=== PATIENT | female | born 1950 | race Caucasian/White ===

== ENCOUNTER → 2017-03-25 | Outpatient (CLI) | payer MEDICARE ==
--- NOTE | 2017-03-27 13:28 | MM ---
Reason for exam: screening (asymptomatic). Last mammogram was performed 1 year and 1 month ago. History: Patient is postmenopausal. Family history of breast cancer in sister at age 66. Benign right mammotome panel of the right breast, January 18, 2013. Benign excisional biopsy of the left breast, August 20, 2002. Physical Findings: A clinical breast exam by your physician is recommended on an annual basis and results should be correlated with mammographic findings. MG 3D Screening Mammo W/Cad Bilateral CC and MLO view(s) were taken. Prior study comparison: February 14, 2016, bilateral MG 3d screening mammo w/cad. January 10, 2014, CAD bilateral diagnostic mammogram. The breast tissue is heterogeneously dense. This may lower the sensitivity of mammography. Finding: There are linear arranged, heterogeneous calcifications in the right breast. Previous mammotome biopsy in the right breast. No significant changes in finding since February 14, 2016. ASSESSMENT: Probably benign, BI-RAD 3 RECOMMENDATION: Follow-up diagnostic mammogram of the right breast in 6 months.
== END | disposition home or self-care (01) ==
LOC: RADMAMWWP 15:04
PROVIDERS: ATTEND Internal Medicine
DX: Z12.31 Encounter for screening mammogram for malignant neoplasm of breast (principal)
CPT/HCPCS: 77063; G0202

== ENCOUNTER → 2017-09-08 | Outpatient (CLI) | payer MEDICARE ==
--- NOTE | 2017-09-08 09:02 | MM ---
Reason for exam: follow-up at short interval from prior study. Last mammogram was performed 5 months ago. History: Patient is postmenopausal. Family history of breast cancer in sister at age 66. Benign right mammotome panel of the right breast, January 18, 2013. Benign excisional biopsy of the left breast, August 20, 2002. Physical Findings: Nurse did not find any significant physical abnormalities on exam. MG 3D Diag Mammo W/Cad RT CC, MLO, and XCCL view(s) were taken of the right breast. Prior study comparison: March 25, 2017, bilateral MG 3d screening mammo w/cad. February 14, 2016, bilateral MG 3d screening mammo w/cad. The breast tissue is heterogeneously dense. This may lower the sensitivity of mammography. Previous mammotome biopsy in the right breast. Redemonstrated group of round and punctate calcifications in the upper outer quadrant of right breast. No change for 6 months, but new from 2016. Continued follow up is recommended. These results were verbally communicated with the patient and result sheet given to the patient on 09/08/17. ASSESSMENT: Probably benign, BI-RAD 3 RECOMMENDATION: Follow-up diagnostic mammogram of both breasts in 6 months.
== END | disposition home or self-care (01) ==
LOC: RADMAMWWP 08:08
PROVIDERS: ATTEND Internal Medicine
DX: R92.8 Other abnormal and inconclusive findings on diagnostic imaging of breast (principal)
CPT/HCPCS: G0206; G0279

== ENCOUNTER → 2018-03-09 | Outpatient (CLI) | payer MEDICARE ==
--- NOTE | 2018-03-09 14:05 | MM ---
Reason for exam: additional evaluation requested from prior study. Last mammogram was performed 6 months ago. History: Patient is postmenopausal. Family history of breast cancer in sister at age 66. Benign right mammotome panel of the right breast, January 18, 2013. Benign excisional biopsy of the left breast, August 20, 2002. Physical Findings: Nurse did not find any significant physical abnormalities on exam. MG 3D Diag Mammo W/Cad [facility] Bilateral CC and MLO view(s) were taken. Prior study comparison: September 08, 2017, right breast MG 3d diag mammo w/cad RT. March 25, 2017, bilateral MG 3d screening mammo w/cad. The breast tissue is heterogeneously dense. This may lower the sensitivity of mammography. Stable benign calcifications bilaterally. Previous mammotome biopsy in the right breast. No significant new findings when compared with previous films. These results were verbally communicated with the patient and result sheet given to the patient on 03/09/18. ASSESSMENT: Benign, BI-RAD 2 RECOMMENDATION: Routine screening mammogram of both breasts in 1 year.
== END | disposition home or self-care (01) ==
LOC: RADMAMWWP 13:19
PROVIDERS: ATTEND Internal Medicine
DX: R92.8 Other abnormal and inconclusive findings on diagnostic imaging of breast (principal)
CPT/HCPCS: 77066; G0279

== ENCOUNTER 2019-01-04 08:00 | Inpatient (IN) | payer MEDICARE ==
[2019-01-04] MEDS ORDERED: IPRATROPIUM-ALBUTEROL 3 ML NEB INHALATION STA (08:19)
[2019-01-04] MEDS ORDERED: LIDOCAINE 1%-EPI 1:100,000 20 ML VIAL SQ STA (08:52)
[2019-01-04] MEDS ORDERED: MORPHINE SULFATE 4 MG/ML SYRINGE IVP STA ×2 (08:58→11:35)
--- NOTE | 2019-01-04 08:58 | XR ---
EXAMINATION TYPE: XR ribs RT w pa chest xray DATE OF EXAM: 01/04/2019 CLINICAL HISTORY: Chest and right-sided rib and shoulder pain after fall injury 2 days ago. TECHNIQUE: Single frontal view of the chest is obtained. A frontal and oblique images of right-sided ribs are acquired. COMPARISON: None FINDINGS: There is fairly moderate size right pneumothorax suspected estimated around 30 to 40% alth ough superior portion or edge is less well-seen. There is right hilar rounded opacity suggesting at l east segmental but possibly lobar atelectasis. No distinct mediastinal shift is present. Left lung is clear. Cardiac silhouette size is mildly enlarged with atherosclerotic thoracic aorta. Osseous struc tures are demineralized. Dedicated images of right-sided ribs show mildly displaced fractures through lateral right fourth thr ough seventh ribs. Degenerative change in the right shoulder is incidentally seen. Cholecystectomy cl ips are incidentally noted. IMPRESSION: Suspect moderate right-sided pneumothorax without mediastinal shift. Suspect central mason r focal atelectasis. At least 4 mildly displaced fractures lateral right fourth through seventh ribs. CT can be performed to further assess. Because is slightly more rounded contour along the central ma rgin of the masslike consolidation favoring atelectasis advise follow-up to rule out underlying pulmo nary mass or neoplasm.
--- NOTE | 2019-01-04 09:08 | ED ---
Fall HPI - General Source: patient, EMS Mode of arrival: EMS Limitations: no limitations <Portillo Judge - Last Filed: 01/04/19 11:54> <Michael Cook - Last Filed: 01/04/19 12:02> - General Chief Complaint: Fall Stated Complaint: rt sided flank/shoulder pain Time Seen by Provider: 01/04/19 08:09 - History of Present Illness Initial Comments: 68-year-old female presents emergency department via EMS chief complaint right- sided pain, fall. Patient states on Friday she was getting out of worse states that she got up with too much momentum states that she fell over the horse landing on her right side. Patient denies head injury no loss conscious. She states she had side pain which is able poor worse awake and tolerated. She states over the last few days that the pain is worsened this morning when she felt more short of breath and had increased pain unalleviated with Tylenol Motrin. Patient denies hip pain, extremity pain. She has full range of motion of her upper extremities. Patient able to ambulate with no difficulty. Patient does admit that she has underlying asthma and occasionally has wheezing. (Portillo Judge) - Related Data Home Medications Medication Instructions Recorded Confirmed Chlorzoxazone [Parafon Forte DSC] 500 mg PO DAILY PRN 01/04/19 01/04/19 Esomeprazole Magnesium [NexIUM] 20 mg PO DAILY 01/04/19 01/04/19 Levocetirizine Dihydrochloride 5 mg PO DAILY 01/04/19 01/04/19 [Xyzal] Levothyroxine Sodium [Synthroid] 100 mcg PO DAILY 01/04/19 01/04/19 Phenytoin Sodium Extended 100 mg PO HS 01/04/19 01/04/19 [Dilantin] Phenytoin Sodium Extended 200 mg PO QAM 01/04/19 01/04/19 [Dilantin] Allergies Allergy/AdvReac Type Severity Reaction Status Date / Time codeine Allergy Unknown Verified 01/04/19 08:24 phenobarbital Allergy Unknown Verified 01/04/19 08:24 Review of Systems ROS Other: All systems not noted in ROS Statement are negative. <Portillo Judge - Last Filed: 01/04/19 11:54> ROS Other: All systems not noted in ROS Statement are negative. <Héctor Cooksssoheila Hannon - Last Filed: 01/04/19 12:02> ROS Statement: Those systems with pertinent positive or pertinent negative responses have been documented in the HPI. Past Medical History Past Medical History: Hypertension, Seizure Disorder, Thyroid Disorder History of Any Multi-Drug Resistant Organisms: None Reported Past Psychological History: No Psychological Hx Reported Smoking Status: Never smoker Past Alcohol Use History: None Reported Past Drug Use History: None Reported <Portillo Judge - Last Filed: 01/04/19 11:54> General Exam Limitations: no limitations General appearance: alert, in no apparent distress Head exam: Present: atraumatic, normocephalic, normal inspection Eye exam: Present: normal appearance, PERRL, EOMI. Absent: scleral icterus, conjunctival injection, periorbital swelling ENT exam: Present: normal exam, normal oropharynx, mucous membranes moist Neck exam: Present: normal inspection. Absent: tenderness, meningismus, lymphadenopathy Respiratory exam: Present: wheezes, decreased breath sounds, other (Patient is hypoxic at 87 on room air). Absent: normal lung sounds bilaterally, respiratory distress, rales, rhonchi, stridor Cardiovascular Exam: Present: regular rate, normal rhythm, normal heart sounds. Absent: systolic murmur, diastolic murmur, rubs, gallop, clicks GI/Abdominal exam: Present: soft, normal bowel sounds. Absent: distended, tenderness, guarding, rebound, rigid Back exam: Present: full ROM. Absent: tenderness, paraspinal tenderness, vertebral tenderness Neurological exam: Present: alert, oriented X3, CN II-XII intact Skin exam: Present: warm, dry, intact, normal color. Absent: rash <Portillo Judge - Last Filed: 01/04/19 11:54> Vital Signs 01/04/19 01/04/19 01/04/19 08:03 08:30 09:30 Temperature 98.0 F Pulse Rate 75 71 Respiratory 20 22 Rate Blood Pressure 176/105 176/105 165/107 O2 Sat by Pulse 87 L 100 Oximetry 01/04/19 01/04/19 01/04/19 09:43 10:00 10:30 Temperature Pulse Rate 66 68 Respiratory 18 18 Rate Blood Pressure 136/82 140/82 O2 Sat by Pulse 100 100 99 Oximetry Procedures - Chest Tube Insertion Consent Obtained: written consent Side of Procedure: right Indication: Pneumothorax Placed on monitor/pulse oximetry: Yes Site Prep: Chloroprep Local Anesthesia: Lidocaine 1%, With Epi Amount (mLs): 10 Insertion Site: Other Scalpel: #11 Tube Size (German): Other Returns: Air Sutured in Place: Yes Type of Suture: Nylon Dressing Applied: Tape Attached to Suction: Yes Type of Suction: Pleuravac Patient Tolerated Procedure: well <Michael Cook - Last Filed: 01/04/19 12:02> Medical Decision Making - Lab Data Result diagrams: 01/04/19 09:35 01/04/19 09:35 <Portillo Judge - Last Filed: 01/04/19 11:54> - Lab Data Result diagrams: 01/04/19 09:35 01/04/19 09:35 <Michael Cook - Last Filed: 01/04/19 12:02> - Medical Decision Making 68-year-old female presented for a fall. Patient's found to have a pneumothorax and multiple rib fractures. Thora was placed by attending Dr. Cook. Patient has stabilized. Patient had CT of her chest abdomen pelvis is found to have multiple rib fractures, ulnar a contusion and mild residual pneumothorax. Patient will be admitted to trauma service at this time with consults. (Portillo Judge) PA attestation: I, Dr. Michael Cook, personally saw and examined the patient. I have reviewed and agree with the resident/PA findings, including all diagnostic interpretations and treatment plans as written unless otherwise stated. I was present for the lopez portions of any procedures performed and inclusive time noted for any critical care statement. Patient was seen and evaluated along with the assistance of physician registered dental assistant rda Mr. Portillo Judge. Briefly, patient is 68-year-old female. She fell off her horse yesterday causing her to land on her right side. Patient experienced pain initially however decided to wait C for pain go away.Upon waking this morning patient was extrinsic disc significant tenderness and difficulty in breathing. EMS was called. Rapid chest x-ray was obtained showing moderate size right pneumothorax. Patient was showing signs of respiratory distress including intercostal retractions, tachypnea. She had diminished lung sounds on the right. Thora-Vent was placed.CT chest abdomen pelvis with contrast was obtained showing small residual right-sided pneumothorax. There is multifocal bilateral patchy opacities which may represent pulmonary contusions. There is multiple nondisplaced right-sided rib fractures. Is also mild indeterminate compression deformity of L1. Patient not having significant back pain. There is also multiple incidental findings. Discussed patient case with general surgeon so went except admission. (Michael Cook) - Lab Data Lab Results 01/04/19 01/04/19 01/04/19 Range/Units 09:35 09:35 09:35 WBC 9.8 (3.8-10.6) k/uL RBC 4.71 (3.80-5.40) m/uL Hgb 13.8 (11.4-16.0) gm/dL Hct 41.8 (34.0-46.0) % MCV 88.7 (80.0-100.0) fL MCH 29.3 (25.0-35.0) pg MCHC 33.0 (31.0-37.0) g/dL RDW 13.0 (11.5-15.5) % Plt Count 190 (150-450) k/uL Neutrophils % 71 % Lymphocytes % 19 % Monocytes % 6 % Eosinophils % 2 % Basophils % 1 % Neutrophils # 7.0 (1.3-7.7) k/uL Lymphocytes # 1.8 (1.0-4.8) k/uL Monocytes # 0.6 (0-1.0) k/uL Eosinophils # 0.2 (0-0.7) k/uL Basophils # 0.1 (0-0.2) k/uL PT 9.6 (9.0-12.0) sec INR 0.9 (<1.2) APTT 24.0 (22.0-30.0) sec Sodium 141 (137-145) mmol/L Potassium 4.3 (3.5-5.1) mmol/L Chloride 109 H (98-107) mmol/L Carbon Dioxide 25 (22-30) mmol/L Anion Gap 7 mmol/L BUN 13 (7-17) mg/dL Creatinine 0.73 (0.52-1.04) mg/dL Est GFR (CKD-EPI)AfAm >90 (>60 ml/min/1.73 sqM) Est GFR (CKD-EPI)NonAf 84 (>60 ml/min/1.73 sqM) Glucose 115 H (74-99) mg/dL Calcium 9.8 (8.4-10.2) mg/dL Total Bilirubin 0.9 (0.2-1.3) mg/dL AST 38 H (14-36) U/L ALT 29 (9-52) U/L Alkaline Phosphatase 204 H (38-126) U/L Total Protein 7.3 (6.3-8.2) g/dL Albumin 4.2 (3.5-5.0) g/dL Disposition <Portillo Judge - Last Filed: 01/04/19 11:54> <Michael Cook - Last Filed: 01/04/19 12:02> Clinical Impression: Fall, Multiple rib fractures, Pneumothorax, Pulmonary contusion Disposition: ADMITTED IP TO THIS HOSP Condition: Fair Referrals: Frank Meek MD [Primary Care Provider] - 1-2 days
--- NOTE | 2019-01-04 09:30 | XR ---
EXAMINATION TYPE: XR chest 1V portable DATE OF EXAM: 01/04/2019 COMPARISON: Chest x-ray earlier today. HISTORY: Trauma injury with rib fractures and pneumothorax status post thoravent placement. TECHNIQUE: Single AP portable frontal upright view of the chest is obtained. FINDINGS: There is interval placement of Thoravent pleural drainage catheter with improvement in rig ht-sided pneumothorax. There is persistent right hilar consolidation less masslike with suprahilar ex tension. New mediastinal shift to the right is present. The cardiac silhouette size is enlarged with atherosclerotic and ectatic thoracic aorta. Left lung remains clear. Underlying chronic emphysemato us changes felt present. The osseous structures are demineralized. Right lateral mid rib fractures le ss well seen on frontal projection. IMPRESSION: Interval placement of right-sided chest tube with resolution of moderate size pneumothor ax. Persistent right hilar consolidation favoring atelectasis with new right-sided volume loss. Progr ess study advised as if atelectasis persists obstructing endobronchial lesion needs to BE considered.
[2019-01-04 10:17] LABS: Basophils # (A) 0.1 k/uL (0-0.2); Basophils % (A) 1 %; Eosinophils # (A) 0.2 k/uL (0-0.7); Eosinophils % (A) 2 %; HCT 41.8 % (34.0-46.0); HGB 13.8 gm/dL (11.4-16.0); Lymphocytes # (A) 1.8 k/uL (1.0-4.8); Lymphocytes % (A) 19 %; MCH 29.3 pg (25.0-35.0); MCV 88.7 fL (80.0-100.0); Mean Platelet Volume 7.9; Monocytes # (A) 0.6 k/uL (0-1.0); Monocytes % (A) 6 %; Neutrophils % (A) 71 %; Platelet Count 190 k/uL (150-450); RBC 4.71 m/uL (3.80-5.40); WBC 9.8 k/uL (3.8-10.6)
[2019-01-04 10:25] LABS: ALT 29 U/L (9-52); AST 38 U/L (14-36); Albumin 4.2 g/dL (3.5-5.0); Alkaline Phosphatase 204 U/L (38-126); Anion Gap 7 mmol/L; Blood Urea Nitrogen 13 mg/dL (7-17); Calcium 9.8 mg/dL (8.4-10.2); Carbon Dioxide 25 mmol/L (22-30); Chloride 109 mmol/L (98-107); Glucose 115 mg/dL (74-99); Potassium 4.3 mmol/L (3.5-5.1); Sodium 141 mmol/L (137-145); Total Bilirubin 0.9 mg/dL (0.2-1.3); Total Protein 7.3 g/dL (6.3-8.2)
[2019-01-04 10:27] LABS: INR 0.9 (<1.2); Prothrombin Time 9.6 sec (9.0-12.0)
--- NOTE | 2019-01-04 11:28 | CT ---
EXAMINATION TYPE: CT ChestAbdPelvis w con DATE OF EXAM: 01/04/2019 COMPARISON: NONE HISTORY: Patient refused to bring arms above head. Patient fell off of horse [address] DLP: 1076.8 mGycm. Automated Exposure Control for Dose Reduction was Utilized. CONTRAST: CT scan of the thorax, abdomen and pelvis is performed with IV Contrast, patient injected with 100 mL of Isovue 300. FINDINGS: Exam is limited by patient motion. Exam is also limited as the patient refused to left her arms above her head creating artifact throughout the chest and abdomen. LUNGS: There is a right-sided small pneumothorax with thoracostomy tube in place. This is now estimat ed to be less than 5% without mediastinal shift. Right anterior chest wall subcutaneous emphysema is also noted. Patchy upper lobe opacities may relate to developing pulmonary contusions. Right basilar atelectasis is seen. MEDIASTINUM: There are no greater than 1 cm hilar or mediastinal lymph nodes. No pericardial effusi on is seen. Mild coronary artery calcifications are present. OTHER: Benign dystrophic calcifications are seen within the left breast. LIVER/GB: No significant abnormality is appreciated. Gallbladder surgically absent. Extra hepatic tevin iary ductal dilatation is likely postsurgical. PANCREAS: There is questionable pancreatic ductal dilatation at the pancreatic head measuring 4 mm li scotty further evaluated with MRCP. SPLEEN: No significant abnormality is seen. ADRENALS: No significant abnormality is seen. 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 No hydronephrosis of either kidney. Too small to accurately characterize right upper pole renal lesion is noted. Exophyt ic left renal lesion on image 77 does not appear to be cystic and measures 1.0 cm, however this is po azeb evaluated given patient motion and spray artifact from the patient's arms. This could be further evaluated with ultrasound to determine cystic or solid nature. BOWEL: There is a small hiatal hernia present. Numerous sigmoid diverticula are seen. No dilated larg e or small bowel is noted. Moderate amount retained colonic stool is present. GENITAL ORGANS: Calcified structure appearing to be contiguous with the remnant right ovary could rel ate to ovarian dermoid and could be further evaluated with pelvic ultrasound. Uterus appears surgical ly absent. LYMPH NODES: No greater than 1cm abdominal or pelvic lymph nodes are appreciated. OSSEOUS STRUCTURES: Nondisplaced anterior lateral rib fractures of ribs 3, 4, 5, 6 on the right are s een in addition to posterior nondisplaced rib fractures of ribs 5 and 11 on the right. There is grade 1 anterolisthesis of L3 on L4. Compression deformity is seen of L1 with height loss of approximately 30% and no retropulsion. Acuity unknown. Moderate multilevel degenerative changes of the spine are n oted. IMPRESSION: 1. Small residual right pneumothorax estimated at approximately 5% status post placement of a right-s ided thoracostomy tube. 2. Multifocal bilateral patchy opacities may represent developing pulmonary contusions and can be fol lowed with chest radiographs. 3. Multiple nondisplaced right-sided rib fractures as described above appearing acute. 4. Age-indeterminate mild compression deformity of L1. Correlate for point tenderness. 5. Multiple incidental findings as described above for which further evaluation on a nonemergent basi s are recommended such as pancreatic head possible ductal dilatation, possible ovarian dermoid, and p ossible solid left renal mass. Evaluation is overall suboptimal due to patient motion and spray artif act from the patient's arms at their side.
[2019-01-04] MEDS ORDERED: NALOXONE 0.4 MG/ML 1 ML VIAL IV PRN ×2 (11:56→12:00)
[2019-01-04] MEDS: HYDROcodone/APAP 5-325MG 1 EACH TAB PO PRN ×2 (13:33→17:42)
[2019-01-04 13:49] VITALS: BMI 30.7
[2019-01-04] MEDS ORDERED: CYCLOBENZAPRINE 5 MG TAB PO PRN (14:30)
--- NOTE | 2019-01-04 14:36 | P.CONS ---
History of Present Illness - Reason for Consult Fall and pneumothorax - History of Present Illness 68-year-old female came in with right-sided chest pain after fall patient is found to have pneumothorax patient received a chest tube placement and permanent placement and patient is pain-free at this time does have some soreness in the chest tube insertion site area. Patient and fever chills nausea vomiting patient does have seizure disorder for which patient is on phenytoin and does have hypothyroidism. Gen. CT of the abdomen did show some incidental findings of pancreatic ductal dilatation along with possible renal mass which need to be evaluated further probably as an outpatient, once everything is stabilized. Past Medical History Past Medical History: Osteoarthritis (OA), Seizure Disorder, Thyroid Disorder Additional Past Medical History / Comment(s): Last seizure in 2007 History of Any Multi-Drug Resistant Organisms: None Reported Past Surgical History: Cholecystectomy, Hysterectomy Additional Past Surgical History / Comment(s): Knee replacement bilaterally. Trigger releases times 3. Partial hysterectomy Past Psychological History: No Psychological Hx Reported Smoking Status: Never smoker Past Alcohol Use History: None Reported Past Drug Use History: None Reported - Past Family History Sister(s) Family Medical History: Cancer Additional Family Medical History / Comment(s): Breast cancer Medications and Allergies Home Medications Medication Instructions Recorded Confirmed Type Chlorzoxazone [Parafon Forte DSC] 500 mg PO DAILY PRN 01/04/19 01/04/19 History Esomeprazole Magnesium [NexIUM] 20 mg PO DAILY 01/04/19 01/04/19 History Levocetirizine Dihydrochloride 5 mg PO DAILY 01/04/19 01/04/19 History [Xyzal] Levothyroxine Sodium [Synthroid] 100 mcg PO DAILY 01/04/19 01/04/19 History Phenytoin Sodium Extended 100 mg PO HS 01/04/19 01/04/19 History [Dilantin] Phenytoin Sodium Extended 200 mg PO QAM 01/04/19 01/04/19 History [Dilantin] Allergies Allergy/AdvReac Type Severity Reaction Status Date / Time codeine Allergy Unknown Verified 01/04/19 08:24 phenobarbital Allergy Unknown Verified 01/04/19 08:24 Physical Exam Vitals: Vital Signs Temp Pulse Pulse Resp BP BP Pulse Ox 01/04/19 13:26 97.9 F 66 18 144/66 96 01/04/19 12:07 68 18 133/85 100 01/04/19 10:30 68 18 140/82 99 01/04/19 10:00 66 18 136/82 100 01/04/19 09:43 100 01/04/19 09:30 71 22 165/107 100 01/04/19 08:30 176/105 01/04/19 08:03 98.0 F 75 20 176/105 87 L Intake and Output 01/03/19 01/04/19 01/04/19 22:59 06:59 14:59 Other: Weight 93.44 kg PHYSICAL EXAMINATION: GENERAL: The patient is alert and oriented x3, not in any acute distress. Well developed, well nourished. HEENT: Pupils are round and equally reacting to light. EOMI. No scleral icterus. No conjunctival pallor. Normocephalic, atraumatic. No pharyngeal erythema. No thyromegaly. CARDIOVASCULAR: S1 and S2 present. No murmurs, rubs, or gallops. PULMONARY: Chest is clear to auscultation, no wheezing or crackles. Right side of the omentum and chest tube in place with a waterseal ABDOMEN: Soft, nontender, nondistended, normoactive bowel sounds. No palpable organomegaly. MUSCULOSKELETAL: No joint swelling or deformity. EXTREMITIES: No cyanosis, clubbing, or pedal edema. NEUROLOGICAL: Gross neurological examination did not reveal any focal deficits. SKIN: No rashes. Results CBC & Chem 7: 01/04/19 09:35 01/04/19 09:35 Labs: Abnormal Lab Results - Last 24 Hours (Table) 01/04/19 Range/Units 09:35 Chloride 109 H (98-107) mmol/L Glucose 115 H (74-99) mg/dL AST 38 H (14-36) U/L Alkaline Phosphatase 204 H (38-126) U/L Assessment and Plan Plan: -Traumatic pneumothorax status post chest tube placement continue with present pain medications and pain is well controlled at this time -Seizure disorder for which patient is in phenytoin which will be resumed -Hypothyroidism continue with levothyroxine -Incidental findings of pancreatic ductal L patient will need an MRCP as an outpatient and prompt will follow-up with urology regarding the possibility of a renal mass
[2019-01-04] MEDS: PHENYTOIN SODIUM EXTENDED 100 MG CAP PO SCH ×2 (15:34→19:55)
[2019-01-04] MEDS: IPRATROPIUM-ALBUTEROL 3 ML NEB INHALATION SCH ×2 (16:15→20:30)
--- NOTE | 2019-01-04 16:30 | P.CNPUL ---
<Mehnaz Ross E - Last Filed: 01/04/19 16:23> History of Present Illness Consult date: 01/04/19 Reason for consult: pneumothorax Chief complaint: shortness of breath History of present illness: This is a 68-year-old patient being seen examined and evaluated today for consultation while we are covering for Dr. Ordoñez. This patient had a fall from her horse on Friday while trying to get on him to right. She tried to rest over the weekend and continued to have increased shortness of breath with increased pain she came into the hospital. The patient did land on her right side. Chest x-ray was obtained in the emergency room and did show a right- sided pneumothorax had 30-40% with multiple rib fractures. She did have a CT of the chest abdomen and pelvis which did show a small residual right pneumothorax existed after chest tube was inserted and approximately 5%. She had multifocal bilateral patchy opacities which appear to be developing pulmonary contusions as well as redemonstration of the rib fractures. Upon examination the patient's resting up in bed on 2 L supplemental oxygen via nasal cannula. She has been using her incentive spirometer. She does have an occasional cough. Her pain is tolerable at about a 3 out of 10. She has never been this. She is afebrile denies any further complaints. Review of Systems 14 point review of systems was completed and is negative unless noted above in HPI Past Medical History Past Medical History: Osteoarthritis (OA), Seizure Disorder, Thyroid Disorder Additional Past Medical History / Comment(s): Last seizure in 2007 History of Any Multi-Drug Resistant Organisms: None Reported Past Surgical History: Cholecystectomy, Hysterectomy Additional Past Surgical History / Comment(s): Knee replacement bilaterally. Trigger releases times 3. Partial hysterectomy Past Psychological History: No Psychological Hx Reported Smoking Status: Never smoker Past Alcohol Use History: None Reported Past Drug Use History: None Reported - Past Family History Sister(s) Family Medical History: Cancer Additional Family Medical History / Comment(s): Breast cancer Medications and Allergies Home Medications Medication Instructions Recorded Confirmed Type Chlorzoxazone [Parafon Forte DSC] 500 mg PO DAILY PRN 01/04/19 01/04/19 History Esomeprazole Magnesium [NexIUM] 20 mg PO DAILY 01/04/19 01/04/19 History Levocetirizine Dihydrochloride 5 mg PO DAILY 01/04/19 01/04/19 History [Xyzal] Levothyroxine Sodium [Synthroid] 100 mcg PO DAILY 01/04/19 01/04/19 History Phenytoin Sodium Extended 100 mg PO HS 01/04/19 01/04/19 History [Dilantin] Phenytoin Sodium Extended 200 mg PO QAM 01/04/19 01/04/19 History [Dilantin] Allergies Allergy/AdvReac Type Severity Reaction Status Date / Time codeine Allergy Unknown Verified 01/04/19 08:24 phenobarbital Allergy Unknown Verified 01/04/19 08:24 Physical Exam Vitals: Vital Signs Temp Pulse Pulse Resp BP BP Pulse Ox 01/04/19 16:23 76 01/04/19 16:15 74 16 01/04/19 13:26 97.9 F 66 18 144/66 96 01/04/19 12:07 68 18 133/85 100 01/04/19 10:30 68 18 140/82 99 01/04/19 10:00 66 18 136/82 100 01/04/19 09:43 100 01/04/19 09:30 71 22 165/107 100 01/04/19 08:30 176/105 01/04/19 08:03 98.0 F 75 20 176/105 87 L Intake and Output 01/04/19 01/04/19 01/04/19 06:59 14:59 22:59 Other: Weight 93.44 kg GENERAL EXAM: Alert, active, comfortable in no apparent distress. HEAD: Normocephalic. EYES: Normal reaction of pupils, equal size. NOSE: Clear with pink turbinates. THROAT: No erythema or exudates. NECK: No masses, no JVD. CHEST: No chest wall deformity. LUNGS: Equal air entry with no crackles, wheeze, rhonchi or dullness. Bases diminished CVS: S1 and S2 normal with no audible mumurs, regular rhythm. ABDOMEN: No hepatosplenomegaly, normal bowel sounds, no guarding or rigidity. EXTREMITIES: No edema noted, pedal pulses palpable. CENTRAL NERVOUS SYSTEM: No focal deficits, tone is normal in all 4 extremities. Results - Laboratory Findings CBC and BMP: 01/04/19 09:35 01/04/19 09:35 PT/INR, D-dimer PT 9.6 sec (9.0-12.0) 01/04/19 09:35 INR 0.9 (<1.2) 01/04/19 09:35 Abnormal lab findings: Abnormal Labs 01/04/19 09:35 Chloride 109 H Glucose 115 H AST 38 H Alkaline Phosphatase 204 H - Diagnostic Findings Chest x-ray: report reviewed, image reviewed CT scan - chest: report reviewed, image reviewed Assessment and Plan Assessment: Assessment Traumatic Pneumothorax Multiple rib fractures Acute hypoxic respiratory failure requiring supplemental oxygen Pulmonary contusions Hypothyroidism History of seizure disorder Plan Medications have been reviewed and will be continued as ordered. Continue with chest tube monitor the output Initiate and encourage incentive spirometer Continue with pulmonary hygiene, coughing and deep breathing exercises, and supportive care. Supplemental oxygen to maintain oxygen saturations of 92% or better. Continue nebulizer treatments. GI and DVT prophylaxis. We will continue to monitor labs/results and adjust treatment as necessary. Further recommendations pending. I, the signing physician performed an examination of the patient, discussed and directed their management with the nurse practitioner. I have reviewed the nurse practitioner's note and agree with the documented findings, orders and plan of care. Nurse practitioner acting as a scribe for the signing physician. <Marleny Kohler A - Last Filed: 01/04/19 16:42> Physical Exam Osteopathic Statement: *. No significant issues noted on an osteopathic structural exam other than those noted in the History and Physical/Consult. Vitals: Vital Signs Temp Pulse Pulse Resp BP BP Pulse Ox 01/04/19 16:23 76 01/04/19 16:15 74 16 01/04/19 13:26 97.9 F 66 18 144/66 96 01/04/19 12:07 68 18 133/85 100 01/04/19 10:30 68 18 140/82 99 01/04/19 10:00 66 18 136/82 100 01/04/19 09:43 100 01/04/19 09:30 71 22 165/107 100 01/04/19 08:30 176/105 01/04/19 08:03 98.0 F 75 20 176/105 87 L Intake and Output 01/04/19 01/04/19 01/04/19 06:59 14:59 22:59 Other: Weight 93.44 kg Results - Laboratory Findings CBC and BMP: 01/04/19 09:35 01/04/19 09:35 PT/INR, D-dimer PT 9.6 sec (9.0-12.0) 01/04/19 09:35 INR 0.9 (<1.2) 01/04/19 09:35 Abnormal lab findings: Abnormal Labs 01/04/19 09:35 Chloride 109 H Glucose 115 H AST 38 H Alkaline Phosphatase 204 H Assessment and Plan Assessment: Patient seen and examined. Patient had follow-up for further hoarse and had traumatic pneumothorax and pulmonary contusions. We'll recommend is to suction. Will discontinue suction in the morning and check chest x-ray. Incentive spirometry and pulmonary hygiene. Monitor chest tube output. Pain control. ~Marleny Kohler DO
[2019-01-04] MEDS: HYDROmorphone 0.5 MG/0.5 ML SYRINGE IVP PRN ×2 (18:44→23:06)
[2019-01-04] MEDS ORDERED: IBUPROFEN 800 MG TAB PO PRN (19:20)
--- NOTE | 2019-01-04 19:20 | P.PAINCN ---
History of Present Illness - Reason for Consult Consult date: 01/04/19 rib fractures - Chief Complaint right chest pain - History of Present Illness Ms. Sousa is a 68-year-old female who had a fall off a horse. She reported to the emergency room after a couple days and had continued right-sided chest wall pain. She was noted to have a pneumothorax and multiple rib fractures. She reports that she was doing okay until she got up and moved today and her pain was significantly exacerbated. She is using minimal amounts of supplemental oxygen and has a chest tube in place Review of Systems Constitutional: Denies chills, Denies fever Respiratory: Reports cough, Reports dyspnea, Reports pain on inspiration Musculoskeletal: Reports as per HPI Past Medical History Past Medical History: Osteoarthritis (OA), Seizure Disorder, Thyroid Disorder Additional Past Medical History / Comment(s): Last seizure in 2007 History of Any Multi-Drug Resistant Organisms: None Reported Past Surgical History: Cholecystectomy, Hysterectomy Additional Past Surgical History / Comment(s): Knee replacement bilaterally. Trigger releases times 3. Partial hysterectomy Past Psychological History: No Psychological Hx Reported Smoking Status: Never smoker Past Alcohol Use History: None Reported Past Drug Use History: None Reported - Past Family History Sister(s) Family Medical History: Cancer Additional Family Medical History / Comment(s): Breast cancer Medications and Allergies Home Medications Medication Instructions Recorded Confirmed Type Chlorzoxazone [Parafon Forte DSC] 500 mg PO DAILY PRN 01/04/19 01/04/19 History Esomeprazole Magnesium [NexIUM] 20 mg PO DAILY 01/04/19 01/04/19 History Levocetirizine Dihydrochloride 5 mg PO DAILY 01/04/19 01/04/19 History [Xyzal] Levothyroxine Sodium [Synthroid] 100 mcg PO DAILY 01/04/19 01/04/19 History Phenytoin Sodium Extended 100 mg PO HS 01/04/19 01/04/19 History [Dilantin] Phenytoin Sodium Extended 200 mg PO QAM 01/04/19 01/04/19 History [Dilantin] Allergies Allergy/AdvReac Type Severity Reaction Status Date / Time codeine Allergy Unknown Verified 01/04/19 08:24 phenobarbital Allergy Unknown Verified 01/04/19 08:24 Physical Exam Vitals: Vital Signs Temp Pulse Pulse Resp BP BP Pulse Ox 01/04/19 16:23 76 01/04/19 16:15 74 16 01/04/19 16:00 98.1 F 74 18 126/60 96 01/04/19 13:26 97.9 F 66 18 144/66 96 01/04/19 12:07 68 18 133/85 100 01/04/19 10:30 68 18 140/82 99 01/04/19 10:00 66 18 136/82 100 01/04/19 09:43 100 01/04/19 09:30 71 22 165/107 100 01/04/19 08:30 176/105 01/04/19 08:03 98.0 F 75 20 176/105 87 L Intake and Output 01/04/19 01/04/19 01/04/19 06:59 14:59 22:59 Intake Total 222 Balance 222 Intake: Oral 222 Other: Weight 93.44 kg - Constitutional General appearance: mild distress, obese - Respiratory Respiratory: right: dullness, negative: diminished - Cardiovascular Rhythm: regular - Gastrointestinal General gastrointestinal: normal bowel sounds - Musculoskeletal Pain over the right side of her chest wall. Tender to palpation. Chest tube in place. Results CBC & Chem 7: 01/04/19 09:35 01/04/19 09:35 Labs: Abnormal Lab Results - Last 24 Hours (Table) 01/04/19 Range/Units 09:35 Chloride 109 H (98-107) mmol/L Glucose 115 H (74-99) mg/dL AST 38 H (14-36) U/L Alkaline Phosphatase 204 H (38-126) U/L Assessment and Plan Assessment: Rib fractures Plan: I discussed the patient potential for trying different alternatives. The patient would like to avoid having an epidural catheter at this time. She reports she was doing well up until today so she doesn't want to move forward that quickly. Today Visit I Discussed with Her That We Could Try Other Alternatives That May Not Be Very Helpful. So Discussed That We Will Add a Lidocaine Patch to Be Placed over the Posterior Chest Wall about 3-4 Cm from the Midline. We'll Continue to Use Oral Analgesics and Also Add a Nonsteroidal Anti-Inflammatory Which Should Be Scheduled. If the Patient Changes Mind We Will Discuss Possible Epidural Catheter. On Today's Visit She Had Received heparin within 2 hours of the consult time. Time with Patient: Less than 30 PQRS Measure Charge Sheet PQRS Narrative: Smoking Status Never smoker Blood Pressure [Left Arm] 126/60 Blood Pressure 133/85 Pain Intensity [Right Chest] 8 Pain Intensity 10 Pain Scale Used Numeric (1 - 10) Scale Used Numeric (1 - 10) Home Medications: Ambulatory Orders Chlorzoxazone [Parafon Forte DSC] 500 mg PO DAILY PRN 01/04/19 Esomeprazole Magnesium [NexIUM] 20 mg PO DAILY 01/04/19 Levocetirizine Dihydrochloride [Xyzal] 5 mg PO DAILY 01/04/19 Levothyroxine Sodium [Synthroid] 100 mcg PO DAILY 01/04/19 Phenytoin Sodium Extended [Dilantin] 100 mg PO HS 01/04/19 Phenytoin Sodium Extended [Dilantin] 200 mg PO QAM 01/04/19
[2019-01-04] MEDS: LIDOCAINE 5% PATCH TOPICAL SCH (19:56)
[2019-01-05] MEDS: HYDROcodone/APAP 5-325MG 1 EACH TAB PO PRN ×4 (01:43→19:18)
[2019-01-05] MEDS: HYDROmorphone 0.5 MG/0.5 ML SYRINGE IVP PRN ×2 (03:19→16:40)
[2019-01-05] MEDS: LEVOTHYROXINE 100 MCG TAB PO SCH (05:40)
[2019-01-05] MEDS: PANTOPRAZOLE 40 MG TABLET PO SCH (05:40)
[2019-01-05 06:29] LABS: Basophils # (A) 0.1 k/uL (0-0.2); Basophils % (A) 1 %; Eosinophils # (A) 0.3 k/uL (0-0.7); Eosinophils % (A) 5 %; HCT 39.5 % (34.0-46.0); HGB 12.4 gm/dL (11.4-16.0); Lymphocytes # (A) 1.4 k/uL (1.0-4.8); Lymphocytes % (A) 19 %; MCH 28.8 pg (25.0-35.0); MCHC 31.3 g/dL (31.0-37.0); MCV 91.9 fL (80.0-100.0); Mean Platelet Volume 7.7; Monocytes # (A) 0.6 k/uL (0-1.0); Monocytes % (A) 9 %; Neutrophils # (A) 4.7 k/uL (1.3-7.7); Neutrophils % (A) 64 %; Platelet Count 180 k/uL (150-450); RDW 13.2 % (11.5-15.5); WBC 7.4 k/uL (3.8-10.6)
[2019-01-05 06:36] LABS: Anion Gap 5 mmol/L; Blood Urea Nitrogen 12 mg/dL (7-17); Calcium 9.6 mg/dL (8.4-10.2); Carbon Dioxide 28 mmol/L (22-30); Chloride 105 mmol/L (98-107); Glucose 129 mg/dL (74-99); Potassium 4.4 mmol/L (3.5-5.1); Sodium 138 mmol/L (137-145)
[2019-01-05] MEDS: HYDROmorphone 1 MG/ML 1 ML SYRINGE IVP PRN ×2 (08:03→23:31)
[2019-01-05] MEDS: PHENYTOIN SODIUM EXTENDED 100 MG CAP PO SCH ×2 (08:05→19:16)
[2019-01-05] MEDS: LORATADINE 10 MG TAB PO SCH (08:05)
[2019-01-05] MEDS: IPRATROPIUM-ALBUTEROL 3 ML NEB INHALATION SCH ×4 (08:20→21:18)
[2019-01-05] MEDS: LIDOCAINE 5% PATCH TOPICAL SCH (10:21)
--- NOTE | 2019-01-05 10:33 | P.GSHP ---
History of Present Illness H&P Date: 01/04/19 Chief Complaint: Right rib fracture, right pneumothorax This is a 68-year-old female who fell while getting on her horse last Friday. Patient describes difficulty on melting her horse. She ended up falling before she got on the horse. She denies any loss of consciousness. The patient states that she was able toremount the horse and ride her horse for a little while. She then developed right-sided chest pain. Patient states her pain progressed over the weekend. She was then brought to the emergency room this morning. Found have multiple right rib fractures and a pneumothorax. A Pleurx catheter was placed by the emergency doctor. The patient is admitted to the floor for treatment of pneumothorax and right rib fractures. Past Medical History Past Medical History: Osteoarthritis (OA), Seizure Disorder, Thyroid Disorder Additional Past Medical History / Comment(s): Last seizure in 2007 History of Any Multi-Drug Resistant Organisms: None Reported Past Surgical History: Cholecystectomy, Hysterectomy Additional Past Surgical History / Comment(s): Knee replacement bilaterally. Trigger releases times 3. Partial hysterectomy Past Psychological History: No Psychological Hx Reported Smoking Status: Never smoker Past Alcohol Use History: None Reported Past Drug Use History: None Reported - Past Family History Sister(s) Family Medical History: Cancer Additional Family Medical History / Comment(s): Breast cancer Medications and Allergies Home Medications Medication Instructions Recorded Confirmed Type Chlorzoxazone [Parafon Forte DSC] 500 mg PO DAILY PRN 01/04/19 01/04/19 History Esomeprazole Magnesium [NexIUM] 20 mg PO DAILY 01/04/19 01/04/19 History Levocetirizine Dihydrochloride 5 mg PO DAILY 01/04/19 01/04/19 History [Xyzal] Levothyroxine Sodium [Synthroid] 100 mcg PO DAILY 01/04/19 01/04/19 History Phenytoin Sodium Extended 100 mg PO HS 01/04/19 01/04/19 History [Dilantin] Phenytoin Sodium Extended 200 mg PO QAM 01/04/19 01/04/19 History [Dilantin] Allergies Allergy/AdvReac Type Severity Reaction Status Date / Time codeine Allergy Unknown Verified 01/04/19 08:24 phenobarbital Allergy Unknown Verified 01/04/19 08:24 Surgical - Exam Vital Signs Temp Pulse Resp BP Pulse Ox 98.0 F 75 20 176/105 87 L 02/04/19 08:03 01/04/19 08:03 01/04/19 08:03 01/04/19 08:03 01/04/19 08:03 - General well developed, well nourished, no distress - Eyes PERRL - ENT normal pinna - Neck no masses - Respiratory Right chest wall pain normal expansion - Cardiovascular Rhythm: regular - Abdomen Abdomen: soft, non tender - Integumentary no rash - Neurologic normal coordination, normal sensation - Musculoskeletal normal gait - Psychiatric oriented to time, oriented to person, oriented to place Results - Labs 01/05/19 05:56 01/05/19 05:56 Abnormal Lab Results - Last 24 Hours (Table) 01/05/19 Range/Units 05:56 Glucose 129 H (74-99) mg/dL Diabetes panel 01/05/19 Range/Units 05:56 Sodium 138 (137-145) mmol/L Potassium 4.4 (3.5-5.1) mmol/L Chloride 105 (98-107) mmol/L Carbon Dioxide 28 (22-30) mmol/L BUN 12 (7-17) mg/dL Creatinine 0.74 (0.52-1.04) mg/dL Glucose 129 H (74-99) mg/dL Calcium 9.6 (8.4-10.2) mg/dL Calcium panel 01/05/19 Range/Units 05:56 Calcium 9.6 (8.4-10.2) mg/dL Pituitary panel 01/05/19 Range/Units 05:56 Sodium 138 (137-145) mmol/L Potassium 4.4 (3.5-5.1) mmol/L Chloride 105 (98-107) mmol/L Carbon Dioxide 28 (22-30) mmol/L BUN 12 (7-17) mg/dL Creatinine 0.74 (0.52-1.04) mg/dL Glucose 129 H (74-99) mg/dL Calcium 9.6 (8.4-10.2) mg/dL Adrenal panel 01/05/19 Range/Units 05:56 Sodium 138 (137-145) mmol/L Potassium 4.4 (3.5-5.1) mmol/L Chloride 105 (98-107) mmol/L Carbon Dioxide 28 (22-30) mmol/L BUN 12 (7-17) mg/dL Creatinine 0.74 (0.52-1.04) mg/dL Glucose 129 H (74-99) mg/dL Calcium 9.6 (8.4-10.2) mg/dL - Imaging Chest x-ray: report reviewed (Right 4 through 7 rib fracture with pneumothorax) Assessment and Plan Assessment: Multiple right rib fractures with pneumothorax. Patient has had her pneumothorax treated with a Pleurx catheter. Patient was admitted to the hospital for pain control. We'll have pulmonology and anesthesia see her. She appears to be doing well.
--- NOTE | 2019-01-05 12:58 | XR ---
EXAMINATION TYPE: XR chest 2V DATE OF EXAM: 01/05/2019 COMPARISON: 01/04/2019 INDICATION: Chest trauma for fracture right ribs TECHNIQUE: Frontal and lateral views of the chest are obtained. FINDINGS: The heart size is mildly prominent. The pulmonary vasculature is normal. Densities within the right upper lung field has improved over the interval. Degree of inspiration is limited. No pneumothorax is evident. Right-sided chest tube remains present.. IMPRESSION: 1. Improving opacity right upper lung field. 2. No pneumothorax. Right-sided Chest tube remains in position.
--- NOTE | 2019-01-05 13:26 | P.PN ---
Subjective Progress Note Date: 01/05/19 HPI: This is a 68-year-old patient being seen examined and evaluated today for consultation while we are covering for Dr. Ordoñez. This patient had a fall from her horse on Friday while trying to get on him to right. She tried to rest over the weekend and continued to have increased shortness of breath with increased pain she came into the hospital. The patient did land on her right side. Chest x-ray was obtained in the emergency room and did show a right- sided pneumothorax had 30-40% with multiple rib fractures. She did have a CT of the chest abdomen and pelvis which did show a small residual right pneumothorax existed after chest tube was inserted and approximately 5%. She had multifocal bilateral patchy opacities which appear to be developing pulmonary contusions as well as redemonstration of the rib fractures. Upon examination the patient's resting up in bed on 2 L supplemental oxygen via nasal cannula. She has been using her incentive spirometer. She does have an occasional cough. Her pain is tolerable at about a 3 out of 10. She has never been this. She is afebrile denies any further complaints. Interval History: 01/05/19- patient is being seen examined and evaluated today on rounds. She is resting up in bed on room air. Chest x-ray was reviewed from this morning pneumothorax has resolved. We will take the chest tube off of suction and put to water seal. Repeat chest x-ray in one hour to assure pneumothorax does not return. She is afebrile does have residual pain. Pain management services has been consulted. Objective - Vital Signs Vital signs: Vital Signs Temp 98.2 F 01/05/19 12:00 Pulse 72 01/05/19 12:27 Resp 17 01/05/19 12:00 BP 133/64 01/05/19 12:00 Pulse Ox 97 01/05/19 12:00 Intake & Output 01/04/19 01/05/19 01/05/19 18:59 06:59 18:59 Intake Total 222 400 720 Output Total 120 300 Balance 222 280 420 Weight 93.44 kg 97.6 kg Intake: Oral 222 400 720 Output: Chest Tube Drainage 20 Thora-Vent Right Upper 20 Anterior Chest Urine 100 300 Other: Voiding Method Bedside Commode Bedside Commode # Voids 1 1 - Exam GENERAL EXAM: Alert, active, comfortable in no apparent distress. HEAD: Normocephalic. EYES: Normal reaction of pupils, equal size. NOSE: Clear with pink turbinates. THROAT: No erythema or exudates. NECK: No masses, no JVD. CHEST: No chest wall deformity. Thoravent chest tube in place LUNGS: Equal air entry with no crackles, wheeze, rhonchi or dullness. Bases diminished CVS: S1 and S2 normal with no audible mumurs, regular rhythm. ABDOMEN: No hepatosplenomegaly, normal bowel sounds, no guarding or rigidity. EXTREMITIES: No edema noted, pedal pulses palpable. CENTRAL NERVOUS SYSTEM: No focal deficits, tone is normal in all 4 extremities. - Labs CBC & Chem 7: 01/05/19 05:56 01/05/19 05:56 Labs: Abnormal Lab Results - Last 24 Hours (Table) 01/05/19 Range/Units 05:56 Glucose 129 H (74-99) mg/dL Assessment and Plan Assessment: Assessment Traumatic Pneumothorax Multiple rib fractures Acute hypoxic respiratory failure requiring supplemental oxygen Pulmonary contusions Hypothyroidism History of seizure disorder Plan Medications have been reviewed and will be continued as ordered. We will put chest tube to suction and get a chest x-ray in one hour Continue with chest tube monitor the output Initiate and encourage incentive spirometer Continue with pulmonary hygiene, coughing and deep breathing exercises, and supportive care. Supplemental oxygen to maintain oxygen saturations of 92% or better. Continue nebulizer treatments. GI and DVT prophylaxis. We will continue to monitor labs/results and adjust treatment as necessary. Further recommendations pending. I, the signing physician performed an examination of the patient, discussed and directed their management with the nurse practitioner. I have reviewed the nurse practitioner's note and agree with the documented findings, orders and plan of care. Nurse practitioner acting as a scribe for the signing physician.
--- NOTE | 2019-01-05 14:48 | P.PN ---
Subjective Progress Note Date: 01/05/19 CHIEF COMPLAINT: Pain HISTORY OF PRESENT ILLNESS: 68-year-old female who fell while getting on her horse last Friday. She presented to the emergency room with pain. She was diagnosed with multiple right-sided rib fractures and pneumothorax. Patient currently denies pain. She denies shortness of breath. No chest pain. Tolerating diet. Denies nausea or vomiting. PHYSICAL EXAM: VITAL SIGNS: Currently stable. GENERAL: Well-developed in no acute distress. HEENT: No sclera icterus. Extraocular movements grossly intact. Moist buccal mucosa. Head is atraumatic, normocephalic. Hears conversational speech. No nasal drainage. NECK: Supple without lymphadenopathy. CHEST: Non-labored respirations and equal bilateral excursions. Pleurx catheter noted. CARDIOVASCULAR: Regular rate with regular rhythm. Palpable 2+ radial pulses. ABDOMEN: Soft. Nondistended. MUSCULOSKELETAL: No clubbing, cyanosis or edema. NEUROLOGIC: No focal or lateralizing signs. Cranial nerves II through XII grossly intact. PSYCH: Appropriate affect. Alert and oriented to person, place and time. SKIN: Well perfused. Good skin turgor. ASSESSMENT: 1. Traumatic fall 2. Multiple right-sided rib fractures 3. Pneumothorax 4. Pulmonary contusions PLAN: Chest tube management per pulmonary. Pain control. Incentive spirometry. Current current treatment. Nurse practitioner note has been reviewed by physician. Signing provider agrees with the documented findings, assessment, and plan of care. Objective - Vital Signs Vital signs: Vital Signs Temp 98.2 F 01/05/19 12:00 Pulse 72 01/05/19 12:27 Resp 17 01/05/19 12:00 BP 133/64 01/05/19 12:00 Pulse Ox 97 01/05/19 12:00 Intake & Output 01/04/19 01/05/19 01/05/19 18:59 06:59 18:59 Intake Total 222 400 720 Output Total 120 300 Balance 222 280 420 Weight 93.44 kg 97.6 kg Intake: Oral 222 400 720 Output: Chest Tube Drainage 20 Thora-Vent Right Upper 20 Anterior Chest Urine 100 300 Other: Voiding Method Bedside Commode Bedside Commode # Voids 1 1 - Labs CBC & Chem 7: 01/05/19 05:56 01/05/19 05:56 Labs: Abnormal Lab Results - Last 24 Hours (Table) 01/05/19 Range/Units 05:56 Glucose 129 H (74-99) mg/dL
--- NOTE | 2019-01-05 15:06 | XR ---
EXAMINATION TYPE: XR chest 2V DATE OF EXAM: 01/05/2019 COMPARISON: 01/05/2019 earlier exam INDICATION: Pneumothorax TECHNIQUE: Frontal and lateral views of the chest are obtained. FINDINGS: The heart size is prominent. The pulmonary vasculature is normal. Chest tubes on the right. No pneumothorax is evident. Streak opacity remains present within the right midlung.. IMPRESSION: 1. No pneumothorax. Chest tube remains in position.
[2019-01-05] MEDS ORDERED: FLUTICASONE 50MCG/SPRAY NASAL 16GM EA NOSTRIL PRN (23:58)
[2019-01-06] MEDS: HYDROmorphone 1 MG/ML 1 ML SYRINGE IVP PRN (03:33)
[2019-01-06 05:58] LABS: Basophils # (A) 0.1 k/uL (0-0.2); Basophils % (A) 1 %; Eosinophils # (A) 0.3 k/uL (0-0.7); Eosinophils % (A) 4 %; HCT 39.9 % (34.0-46.0); HGB 12.8 gm/dL (11.4-16.0); Lymphocytes # (A) 1.6 k/uL (1.0-4.8); Lymphocytes % (A) 19 %; MCH 29.4 pg (25.0-35.0); MCHC 32.1 g/dL (31.0-37.0); MCV 91.4 fL (80.0-100.0); Monocytes # (A) 0.7 k/uL (0-1.0); Monocytes % (A) 8 %; Neutrophils # (A) 5.5 k/uL (1.3-7.7); Neutrophils % (A) 66 %; Platelet Count 191 k/uL (150-450); RBC 4.37 m/uL (3.80-5.40); WBC 8.3 k/uL (3.8-10.6)
[2019-01-06] MEDS: LEVOTHYROXINE 100 MCG TAB PO SCH (06:09)
[2019-01-06] MEDS: PANTOPRAZOLE 40 MG TABLET PO SCH (06:09)
[2019-01-06 06:15] LABS: Anion Gap 7 mmol/L; Blood Urea Nitrogen 12 mg/dL (7-17); Carbon Dioxide 28 mmol/L (22-30); Chloride 103 mmol/L (98-107); Glucose 145 mg/dL (74-99); Potassium 4.4 mmol/L (3.5-5.1); Sodium 138 mmol/L (137-145)
[2019-01-06 06:16] LABS: Calcium 9.6 mg/dL (8.4-10.2)
[2019-01-06] MEDS: IPRATROPIUM-ALBUTEROL 3 ML NEB INHALATION SCH ×4 (07:10→20:31)
[2019-01-06] MEDS: LIDOCAINE 5% PATCH TOPICAL SCH (08:51)
[2019-01-06] MEDS: PHENYTOIN SODIUM EXTENDED 100 MG CAP PO SCH ×2 (08:54→21:00)
[2019-01-06] MEDS: LORATADINE 10 MG TAB PO SCH (08:54)
[2019-01-06] MEDS: HYDROmorphone 0.5 MG/0.5 ML SYRINGE IVP PRN ×3 (10:44→20:17)
--- NOTE | 2019-01-06 12:07 | P.PN ---
Subjective Progress Note Date: 01/06/19 HPI: This is a 68-year-old patient being seen examined and evaluated today for consultation while we are covering for Dr. Ordoñez. This patient had a fall from her horse on Friday while trying to get on him to right. She tried to rest over the weekend and continued to have increased shortness of breath with increased pain she came into the hospital. The patient did land on her right side. Chest x-ray was obtained in the emergency room and did show a right- sided pneumothorax had 30-40% with multiple rib fractures. She did have a CT of the chest abdomen and pelvis which did show a small residual right pneumothorax existed after chest tube was inserted and approximately 5%. She had multifocal bilateral patchy opacities which appear to be developing pulmonary contusions as well as redemonstration of the rib fractures. Upon examination the patient's resting up in bed on 2 L supplemental oxygen via nasal cannula. She has been using her incentive spirometer. She does have an occasional cough. Her pain is tolerable at about a 3 out of 10. She has never been this. She is afebrile denies any further complaints. Interval History: 01/05/19- patient is being seen examined and evaluated today on rounds. She is resting up in bed on room air. Chest x-ray was reviewed from this morning pneumothorax has resolved. We will take the chest tube off of suction and put to water seal. Repeat chest x-ray in one hour to assure pneumothorax does not return. She is afebrile does have residual pain. Pain management services has been consulted. 01/06/19- patient is being seen examined and evaluated today on rounds while covering for Dr. Ordoñez. Resting up in bed on room air. Her chest x-ray from this morning is currently pending. If the chest x-ray does reveal that the patient's pneumothorax is continued to be resolved. Patient's chest tube could be pulled out potentially today. Pending the official read of the chest x-ray. Has been using her incentive spirometer. Her diet has been good. Her pain is under control. No further complaints Objective - Vital Signs Vital signs: Vital Signs Temp 98.2 F 01/06/19 08:00 Pulse 70 01/06/19 11:26 Resp 16 01/06/19 11:26 BP 114/76 01/06/19 11:26 Pulse Ox 92 L 01/06/19 11:26 Intake & Output 01/05/19 01/06/19 01/06/19 18:59 06:59 18:59 Intake Total 960 1000 240 Output Total 300 520 Balance 660 480 240 Weight 98.5 kg Intake: Oral 960 1000 240 Output: Chest Tube Drainage 20 Thora-Vent Right Upper 20 Anterior Chest Urine 300 500 Other: Voiding Method Bedside Commode Bedside Commode Bedside Commode # Voids 2 3 - Exam GENERAL EXAM: Alert, active, comfortable in no apparent distress. HEAD: Normocephalic. EYES: Normal reaction of pupils, equal size. NOSE: Clear with pink turbinates. THROAT: No erythema or exudates. NECK: No masses, no JVD. CHEST: No chest wall deformity. Thoravent chest tube in place LUNGS: Equal air entry with no crackles, wheeze, rhonchi or dullness. Bases diminished CVS: S1 and S2 normal with no audible mumurs, regular rhythm. ABDOMEN: No hepatosplenomegaly, normal bowel sounds, no guarding or rigidity. EXTREMITIES: No edema noted, pedal pulses palpable. CENTRAL NERVOUS SYSTEM: No focal deficits, tone is normal in all 4 extremities. - Labs CBC & Chem 7: 01/06/19 05:25 01/06/19 05:25 Labs: Abnormal Lab Results - Last 24 Hours (Table) 01/06/19 Range/Units 05:25 Glucose 145 H (74-99) mg/dL Assessment and Plan Assessment: Assessment Traumatic Pneumothorax Multiple rib fractures Acute hypoxic respiratory failure requiring supplemental oxygen Pulmonary contusions Hypothyroidism History of seizure disorder Plan Medications have been reviewed and will be continued as ordered. Chest xray pending. possibly d/c chest tube per results. Initiate and encourage incentive spirometer Pain control Continue with pulmonary hygiene, coughing and deep breathing exercises, and supportive care. Supplemental oxygen to maintain oxygen saturations of 92% or better. Continue nebulizer treatments. GI and DVT prophylaxis. We will continue to monitor labs/results and adjust treatment as necessary. Further recommendations pending. I, the signing physician performed an examination of the patient, discussed and directed their management with the nurse practitioner. I have reviewed the nurse practitioner's note and agree with the documented findings, orders and plan of care. Nurse practitioner acting as a scribe for the signing physician. Please note we are covering for Dr. Ordoñez
[2019-01-06] MEDS: HYDROcodone/APAP 5-325MG 1 EACH TAB PO PRN ×2 (12:53→22:57)
--- NOTE | 2019-01-06 15:17 | XR ---
EXAMINATION TYPE: XR chest 2V DATE OF EXAM: 01/06/2019 COMPARISON: 01/05/2019 HISTORY: Shortness of breath TECHNIQUE: Frontal and lateral views of the chest are obtained. FINDINGS: Scattered senescent parenchymal changes noted. Hyperinflation compatible with COPD. Increasing ovoid density right midlung zone may reflect trapped fluid. Pleural catheter unchanged. No evidence for pneumothorax. Heart size is stable. Mediastinal structures are stable and grossly unremarkable. No evidence for hilar prominence. Degenerative changes dorsal spine. IMPRESSION: 1. Increasing ovoid density right midlung zone may reflect trapped fluid. Pleural catheter unchanged. No evidence for pneumothorax.
--- NOTE | 2019-01-06 16:40 | XR ---
EXAMINATION TYPE: XR chest 2V DATE OF EXAM: 01/06/2019 COMPARISON: 01/06/2019 INDICATION: Post chest tube removal TECHNIQUE: Frontal and lateral views of the chest are obtained. FINDINGS: The heart size is prominent. The pulmonary vasculature is normal. Streak opacities at the right midlung remains present. The chest tube is been removed. No pneumothora x is evident. IMPRESSION: 1. No pneumothorax post chest tube removal. 2. Cardiomegaly. 3. Stable streak opacity right midlung.
[2019-01-07] MEDS: HYDROmorphone 0.5 MG/0.5 ML SYRINGE IVP PRN ×2 (03:00→10:38)
[2019-01-07] MEDS: LEVOTHYROXINE 100 MCG TAB PO SCH (06:02)
[2019-01-07] MEDS: PANTOPRAZOLE 40 MG TABLET PO SCH (06:02)
[2019-01-07] MEDS: HYDROcodone/APAP 5-325MG 1 EACH TAB PO PRN (06:02)
--- NOTE | 2019-01-07 06:57 | P.PN ---
Progress Note - Text Progress Note Date: 01/06/19 The patient is resting comfortably in her bed. He appears to be no evidence of air leak on her chest tube. On exam her vital signs appear stable. She has some right chest wall pain. Abdomen soft nontender. Patient will most likely have her chest tube removed today. [place] be discharged home tomorrow.
--- NOTE | 2019-01-07 07:10 | P.PN ---
Subjective Progress Note Date: 01/05/19 Hospital course: - Reason for Consult Fall and pneumothorax - History of Present Illness 68-year-old female came in with right-sided chest pain after fall patient is found to have pneumothorax patient received a chest tube placement and permanent placement and patient is pain-free at this time does have some soreness in the chest tube insertion site area. Patient and fever chills nausea vomiting patient does have seizure disorder for which patient is on phenytoin and does have hypothyroidism. Gen. CT of the abdomen did show some incidental findings of pancreatic ductal dilatation along with possible renal mass which need to be evaluated further probably as an outpatient, once everything is stabilized. 01/05/2019 patient had declined epidural. Chest x-ray reporting resolved pneumothorax. Thoravent to waterseal. Complains of tenderness at insertion site of chest tube as well as rib cage pain. Pain management services consulted. Maintaining O2 sats of 96% on 2 L nasal cannula. Afebrile. Objective - Vital Signs Vital signs: Vital Signs Temp 98.2 F 01/05/19 12:00 Pulse 72 01/05/19 12:27 Resp 17 01/05/19 12:00 BP 133/64 01/05/19 12:00 Pulse Ox 97 01/05/19 12:00 Intake & Output 01/04/19 01/05/19 01/05/19 18:59 06:59 18:59 Intake Total 222 400 720 Output Total 120 300 Balance 222 280 420 Weight 93.44 kg 97.6 kg Intake: Oral 222 400 720 Output: Chest Tube Drainage 20 Thora-Vent Right Upper 20 Anterior Chest Urine 100 300 Other: Voiding Method Bedside Commode Bedside Commode # Voids 1 1 - Exam GENERAL: The patient is sitting up in bed, alert and oriented x3, not in any acute distress. Well developed, well nourished. HEENT: Pupils are round and equally reacting to light. EOMI. No scleral icterus. No conjunctival pallor. Normocephalic, atraumatic. Oral mucosa moist CARDIOVASCULAR: S1 and S2 present. No murmurs, rubs, or gallops. PULMONARY: Chest is clear to auscultation, bilateral bases diminished, no wheezing or crackles. Right side chest tube in place to waterseal ABDOMEN: Soft, nontender, nondistended, normoactive bowel sounds. No palpable organomegaly. MUSCULOSKELETAL: No joint swelling or deformity. EXTREMITIES: No cyanosis, clubbing, or pedal edema. NEUROLOGICAL: Gross neurological examination did not reveal any focal deficits. SKIN: No rashes. - Labs CBC & Chem 7: 01/06/19 05:25 01/06/19 05:25 Labs: Abnormal Lab Results - Last 24 Hours (Table) 01/05/19 Range/Units 05:56 Glucose 129 H (74-99) mg/dL Assessment and Plan Assessment: -Traumatic pneumothorax status post chest tube placement, resolved -Acute hypoxic respiratory failure secondary to the above -Seizure disorder -Hypothyroidism -Incidental findings of pancreatic ductal dilatation , outpatient MRCP and prompt follow-up with urology regarding the possibility of a renal mass Plan: Continue current medication regime ,monitoring and symptomatic treatment. Maintain nebulized bronchodilators.thoravent management as per pulmonary. Aggressive pulmonary toileting with incentive spirometer reinforced. Increase ambulation as tolerated. Pain management. The impression and plan of care has been dictated as directed. : I performed a history and examination of this patient, discussed the same with the dictator. I agree with the dictator's note ,documented as a scribe. Any additional findings or plans will be noted.
--- NOTE | 2019-01-07 07:20 | P.PN ---
Subjective Progress Note Date: 01/06/19 Hospital course: - Reason for Consult Fall and pneumothorax - History of Present Illness 68-year-old female came in with right-sided chest pain after fall patient is found to have pneumothorax patient received a chest tube placement and permanent placement and patient is pain-free at this time does have some soreness in the chest tube insertion site area. Patient and fever chills nausea vomiting patient does have seizure disorder for which patient is on phenytoin and does have hypothyroidism. Gen. CT of the abdomen did show some incidental findings of pancreatic ductal dilatation along with possible renal mass which need to be evaluated further probably as an outpatient, once everything is stabilized. 01/05/2019 patient had declined epidural. Chest x-ray reporting resolved pneumothorax. Thoravent catheter to waterseal. Complains of tenderness at insertion site of chest tube as well as rib cage pain. Pain management services consulted. Maintaining O2 sats of 96% on 2 L nasal cannula. Afebrile. 01/06/2019 chest x-ray reporting increasing right midlung density, possible trapped fluid, pleural catheter unchanged. Oxygen has been weaned off, maintaining O2 sats in the low 90s on room air. Pain controlled. Afebrile. Objective - Vital Signs Vital signs: Vital Signs Temp 98.2 F 01/06/19 08:00 Pulse 70 01/06/19 16:00 Resp 16 01/06/19 16:00 BP 114/76 01/06/19 11:26 Pulse Ox 92 L 01/06/19 11:26 Intake & Output 01/05/19 01/06/19 01/06/19 18:59 06:59 18:59 Intake Total 960 1000 240 Output Total 300 520 Balance 660 480 240 Weight 98.5 kg Intake: Oral 960 1000 240 Output: Chest Tube Drainage 20 Thora-Vent Right Upper 20 Anterior Chest Urine 300 500 Other: Voiding Method Bedside Commode Bedside Commode Bedside Commode # Voids 2 3 - Exam GENERAL: The patient is sitting up in bed, alert and oriented x3, no acute distress. HEENT: Pupils are round and equally reacting to light. EOMI. No conjunctival pallor. Normocephalic, atraumatic. Oral mucosa moist CARDIOVASCULAR: S1 and S2 present. No murmurs, rubs, or gallops. PULMONARY: Chest is clear to auscultation, bilateral bases diminished, no wheezing or crackles. Right side chest tube in place to waterseal ABDOMEN: Soft, nontender, nondistended, normoactive bowel sounds. No palpable organomegaly. MUSCULOSKELETAL: No joint swelling or deformity. EXTREMITIES: No cyanosis, clubbing, or pedal edema. NEUROLOGICAL: Gross neurological examination did not reveal any focal deficits. SKIN: No rashes. - Labs CBC & Chem 7: 01/06/19 05:25 01/06/19 05:25 Labs: Abnormal Lab Results - Last 24 Hours (Table) 01/06/19 Range/Units 05:25 Glucose 145 H (74-99) mg/dL Assessment and Plan Assessment: -Traumatic pneumothorax status post chest tube placement, resolved -Acute hypoxic respiratory failure secondary to the above -Seizure disorder -Hypothyroidism -Incidental findings of pancreatic ductal dilatation , outpatient MRCP and prompt follow-up with urology regarding the possibility of a renal mass Plan: Continue current medication regime ,monitoring and symptomatic treatment. Aggressive pulmonary toileting, continue nebulized bronchodilators. Maintain nebulized bronchodilators. Pain management. DC of thoravent as per surgery/ pulmonary. The impression and plan of care has been dictated as directed. : I performed a history and examination of this patient, discussed the same with the dictator. I agree with the dictator's note ,documented as a scribe. Any additional findings or plans will be noted.
[2019-01-07] MEDS: IPRATROPIUM-ALBUTEROL 3 ML NEB INHALATION SCH ×2 (09:12→12:08)
--- NOTE | 2019-01-07 09:34 | XR ---
EXAMINATION TYPE: XR chest 2V DATE OF EXAM: 01/07/2019 COMPARISON: 01/06/2019 HISTORY: Shortness of breath TECHNIQUE: Frontal and lateral views of the chest are obtained. FINDINGS: No evidence for pneumothorax. Scattered senescent parenchymal changes noted. Hyperinflation compatible with COPD. Stable low density right midlung zone may reflect trapped fluid. Heart size is stable. Mediastinal structures are stable and grossly unremarkable. No evidence for hilar prominence. Degenerative changes dorsal spine. IMPRESSION: 1. No evidence for acute pulmonary disease. Stable chest. No evidence for pneumothorax.
[2019-01-07] MEDS: LORATADINE 10 MG TAB PO SCH (09:56)
[2019-01-07] MEDS: PHENYTOIN SODIUM EXTENDED 100 MG CAP PO SCH (09:59)
[2019-01-07] MEDS: LIDOCAINE 5% PATCH TOPICAL SCH (10:35)
--- NOTE | 2019-01-07 11:02 | P.PN ---
Subjective Progress Note Date: 01/07/19 HPI: This is a 68-year-old patient being seen examined and evaluated today for consultation while we are covering for Dr. Ordoñez. This patient had a fall from her horse on Friday while trying to get on him to right. She tried to rest over the weekend and continued to have increased shortness of breath with increased pain she came into the hospital. The patient did land on her right side. Chest x-ray was obtained in the emergency room and did show a right- sided pneumothorax had 30-40% with multiple rib fractures. She did have a CT of the chest abdomen and pelvis which did show a small residual right pneumothorax existed after chest tube was inserted and approximately 5%. She had multifocal bilateral patchy opacities which appear to be developing pulmonary contusions as well as redemonstration of the rib fractures. Upon examination the patient's resting up in bed on 2 L supplemental oxygen via nasal cannula. She has been using her incentive spirometer. She does have an occasional cough. Her pain is tolerable at about a 3 out of 10. She has never been this. She is afebrile denies any further complaints. Interval History: 01/05/19- patient is being seen examined and evaluated today on rounds. She is resting up in bed on room air. Chest x-ray was reviewed from this morning pneumothorax has resolved. We will take the chest tube off of suction and put to water seal. Repeat chest x-ray in one hour to assure pneumothorax does not return. She is afebrile does have residual pain. Pain management services has been consulted. 01/06/19- patient is being seen examined and evaluated today on rounds while covering for Dr. Ordoñez. Resting up in bed on room air. Her chest x-ray from this morning is currently pending. If the chest x-ray does reveal that the patient's pneumothorax is continued to be resolved. Patient's chest tube could be pulled out potentially today. Pending the official read of the chest x-ray. Has been using her incentive spirometer. Her diet has been good. Her pain is under control. No further complaints 01/07/19- patient is being seen examined and evaluated today on rounds while covering for Dr. Ordoñez. Patient did have her chest tube removed yesterday without complication. Chest x-ray was reviewed and shows no evidence for recurrent pneumothorax. Her breathing has been stable. Her only complaints are of pain with the rib fractures. She does complain of not being able to wear a bra with her pendulous breasts and does complain of the weight from the breasts causing increased pain. We did add a pillow to help with support underneath the breast which seems to help her somewhat. All labs and reports have been reviewed and no further complaints Objective - Vital Signs Vital signs: Vital Signs Temp 98.9 F 01/07/19 08:00 Pulse 76 01/07/19 09:20 Resp 18 01/07/19 08:00 BP 128/83 01/07/19 08:00 Pulse Ox 92 L 01/07/19 08:00 Intake & Output 01/06/19 01/07/19 01/07/19 18:59 06:59 18:59 Intake Total 960 480 Output Total 400 Balance 960 -400 480 Weight 98.1 kg Intake: Oral 960 480 Output: Urine 400 Other: Voiding Method Bedside Commode Toilet Toilet # Voids 3 1 - Exam GENERAL EXAM: Alert, active, comfortable in no apparent distress. HEAD: Normocephalic. EYES: Normal reaction of pupils, equal size. NOSE: Clear with pink turbinates. THROAT: No erythema or exudates. NECK: No masses, no JVD. CHEST: No chest wall deformity. LUNGS: Equal air entry with no crackles, wheeze, rhonchi or dullness. Bases diminished CVS: S1 and S2 normal with no audible mumurs, regular rhythm. ABDOMEN: No hepatosplenomegaly, normal bowel sounds, no guarding or rigidity. EXTREMITIES: No edema noted, pedal pulses palpable. CENTRAL NERVOUS SYSTEM: No focal deficits, tone is normal in all 4 extremities. - Labs CBC & Chem 7: 01/06/19 05:25 01/06/19 05:25 Assessment and Plan Assessment: Assessment Traumatic Pneumothorax Multiple rib fractures Acute hypoxic respiratory failure requiring supplemental oxygen Pulmonary contusions Hypothyroidism History of seizure disorder Plan Patient is stable from a pulmonary standpoint Medications have been reviewed and will be continued as ordered. Chest xray reviewed, no reoccurring pneumothorax Initiate and encourage incentive spirometer Pain control Continue with pulmonary hygiene, coughing and deep breathing exercises, and supportive care. Supplemental oxygen to maintain oxygen saturations of 92% or better. Continue nebulizer treatments. GI and DVT prophylaxis. We will continue to monitor labs/results and adjust treatment as necessary. Further recommendations pending. I, the signing physician performed an examination of the patient, discussed and directed their management with the nurse practitioner. I have reviewed the nurse practitioner's note and agree with the documented findings, orders and plan of care. Nurse practitioner acting as a scribe for the signing physician. Please note we are covering for Dr. Ordoñez
[2019-01-07 11:12] VITALS: BP 122/71; RESP 20; TEMP 98.8
--- NOTE | 2019-01-07 12:03 | P.PN ---
Progress Note - Text Progress Note Date: 01/07/19 The patient is resting comfortably in her bed. There is no evidence of pneumothorax on her morning x-ray. Patient will be discharged home today. She'll follow-up in one week.
[2019-01-07 12:19] VITALS: PULSE 84
--- NOTE | 2019-01-07 14:32 | P.PN ---
Subjective Progress Note Date: 01/07/19 Hospital course: - Reason for Consult Fall and pneumothorax - History of Present Illness 68-year-old female came in with right-sided chest pain after fall patient is found to have pneumothorax patient received a chest tube placement and permanent placement and patient is pain-free at this time does have some soreness in the chest tube insertion site area. Patient and fever chills nausea vomiting patient does have seizure disorder for which patient is on phenytoin and does have hypothyroidism. Gen. CT of the abdomen did show some incidental findings of pancreatic ductal dilatation along with possible renal mass which need to be evaluated further probably as an outpatient, once everything is stabilized. 01/05/2019 patient had declined epidural. Chest x-ray reporting resolved pneumothorax. Thoravent catheter to waterseal. Complains of tenderness at insertion site of chest tube as well as rib cage pain. Pain management services consulted. Maintaining O2 sats of 96% on 2 L nasal cannula. Afebrile. 01/06/2019 chest x-ray reporting increasing right midlung density, possible trapped fluid, pleural catheter unchanged. Oxygen has been weaned off, maintaining O2 sats in the low 90s on room air. Pain controlled. Afebrile. 01/07/2019 Pleurx catheter discontinued yesterday. Tolerated well. Chest x- ray this morning reporting no acute pulmonary disease, no recurrent pneumothorax. Maintaining O2 sats of 93% on room air. Complains of rib fractures tenderness/pain. Denies chest pain, palpitations or increasing shortness of breath. Objective - Vital Signs Vital signs: Vital Signs Temp 98.5 F 01/07/19 03:42 Pulse 71 01/07/19 03:42 Resp 18 01/07/19 03:42 BP 131/84 01/07/19 03:42 Pulse Ox 94 L 01/07/19 03:42 Intake & Output 01/06/19 01/07/19 01/07/19 18:59 06:59 18:59 Intake Total 960 Output Total 400 Balance 960 -400 Weight 98.1 kg Intake: Oral 960 Output: Urine 400 Other: Voiding Method Bedside Commode Toilet # Voids 3 1 - Exam GENERAL: The patient is sitting up in bed, alert and oriented x3, no acute distress. HEENT: Pupils are round and equally reacting to light. EOMI. No conjunctival pallor. Normocephalic, atraumatic. Oral mucosa moist CARDIOVASCULAR: S1 and S2 present. No murmurs, rubs, or gallops. PULMONARY: Chest is clear to auscultation, bilateral bases diminished, no wheezing or crackles. ABDOMEN: Soft, nontender, nondistended, normoactive bowel sounds. No palpable organomegaly. MUSCULOSKELETAL: No joint swelling or deformity. EXTREMITIES: No cyanosis, clubbing, or pedal edema. NEUROLOGICAL: Gross neurological examination did not reveal any focal deficits. SKIN: No rashes. - Labs CBC & Chem 7: 01/06/19 05:25 01/06/19 05:25 Assessment and Plan Assessment: -Traumatic pneumothorax resolved, status post chest tube -Acute hypoxic respiratory failure secondary to the above -Seizure disorder -Hypothyroidism -Incidental findings of pancreatic ductal dilatation , outpatient MRCP and prompt follow-up with urology regarding the possibility of a renal mass Plan: Continue current medication regime ,monitoring and symptomatic treatment. Aggressive pulmonary toileting, continue nebulized bronchodilators. Pain management. Patient will need outpatient MRCP-Incidental findings of pancreatic ductal dilatation , prompt follow-up with urology regarding possibility of renal mass. The impression and plan of care has been dictated as directed. : I performed a history and examination of this patient, discussed the same with the dictator. I agree with the dictator's note ,documented as a scribe. Any additional findings or plans will be noted.
== END 2019-01-07 14:48 | disposition home or self-care (01) | DRG 199 ==
LOC: EC 08:00 → 3SCARD 12:03
PROVIDERS: ADMIT Surgery; ATTEND Surgery
PROC: 0W9930Z Drainage of Right Pleural Cavity with Drainage Device, Percutaneous Approach (ICD-10-PCS; principal; 2019-01-04)
DX: S27.0XXA Traumatic pneumothorax, initial encounter (principal); J96.01 Acute respiratory failure with hypoxia; S22.41XA Multiple fractures of ribs, right side, initial encounter for closed fracture; S27.329A Contusion of lung, unspecified, initial encounter; E03.9 Hypothyroidism, unspecified; G40.909 Epilepsy, unspecified, not intractable, without status epilepticus; I10 Essential (primary) hypertension; J45.909 Unspecified asthma, uncomplicated; K86.89 Other specified diseases of pancreas; V80.010A Animal-rider injured by fall from or being thrown from horse in noncollision accident, initial encounter; Y93.52 Activity, horseback riding; Z79.890 Hormone replacement therapy; Z80.3 Family history of malignant neoplasm of breast; Z90.711 Acquired absence of uterus with remaining cervical stump; Z96.653 Presence of artificial knee joint, bilateral; Z79.899 Other long term (current) drug therapy; Z88.5 Allergy status to narcotic agent; Z88.8 Allergy status to other drugs, medicaments and biological substances; Z90.49 Acquired absence of other specified parts of digestive tract
CPT/HCPCS: 32551; 36415; 71045; 71046; 71260; 74177; 80048; 80053; 83605; 85025; 85610; 85730; 94640; 94760; 96374; 96376; 99285

== ENCOUNTER → 2019-08-25 | Outpatient (CLI) | payer MEDICARE ==
--- NOTE | 2019-08-25 16:52 | BD ---
EXAMINATION TYPE: Axial Bone Density DATE OF EXAM: 08/25/2019 COMPARISON: NONE CLINICAL HISTORY: Osteopenia Height: 60 Weight: 219.7 FRAX RISK QUESTIONS: Alcohol (3 or more units per day): no Family History (Parent hip fracture): no Glucocorticoids (More than 3mos): no (Ex: prednisone, prednisolone, methylprednisolone, dexamethasone, and hydrocortisone). History of Fracture in Adulthood: yes Secondary Osteoporosis: 1. Type 1 Diabetes: no 2. Hyperthyroidism: no 3. Menopause before 45: no 4. Malnutrition: no 5. Chronic liver disease: no Rheumatoid Arthritis: no Current Tobacco Use: no RISK FACTORS HISTORY OF: Family History of Osteoporosis: no Active: sometimes Diet low in dairy products/other sources of calcium: no Postmenopausal woman: age 49 Lost more than 2 inches in height since high school: no MEDICATIONS: dilantin Thyroid Medications: synthroid How Lon years Additional History: EXAM MEASUREMENTS: Bone mineral densitometry was performed using the [employer]. Bone mineral density as measured about the Lumbar spine is: ----- L1-L4(G/cm2): 1.328 T Score Values are as follows: ----- L2: 0.1 ----- L3: 0.3 ----- L4: 1.4 ----- L1-L4: 1.2 Bone mineral density has: decreased -0.1 % since study of: 12.31.2012 Bone mineral density about the R hip (g/cm2): 0.701 Bone mineral density about the L hip (g/cm2): 0.764 T Score values are as follows: -----R Neck: -2.4 -----L Neck: -2.0 -----R Total: -1.9 -----L Total: -1.7 Bone mineral density has: decreased -7.7 % since study of: 12.31.2012 IMPRESSION: Osteopenia (T Score between -2.5 and -1). There is slightly increased risk of fracture and the patient may be considered for treatment. Re-Screen 2-5 years. NOTE: T-SCORE=SD OF THE YOUNG ADULT MEAN.
--- NOTE | 2019-08-27 13:18 | MM ---
Reason for exam: screening (asymptomatic). Last mammogram was performed 1 year and 6 months ago. History: Patient is postmenopausal. Family history of breast cancer in sister at age 66. Benign right mammotome panel of the right breast, January 18, 2013. Benign excisional biopsy of the left breast, August 20, 2002. Physical Findings: A clinical breast exam by your physician is recommended on an annual basis and results should be correlated with mammographic findings. MG 3D Screening Mammo W/Cad Bilateral CC, MLO, and XCCL view(s) were taken. XCCM view(s) were taken of the right breast. Prior study comparison: March 09, 2018, bilateral MG 3d diag mammo w/cad [facility]. September 08, 2017, right breast MG 3d diag mammo w/cad [facility]. Finding: There are stable coarse heterogeneous, grouped/clustered calcifications in the upper outer quadrant, middle position of the right breast. No significant changes in finding since March 09, 2018 and September 08, 2017. ASSESSMENT: Benign, BI-RAD 2 RECOMMENDATION: Routine screening mammogram of both breasts in 1 year.
== END | disposition home or self-care (01) ==
LOC: RADMAMWWP 13:59
PROVIDERS: ATTEND Internal Medicine
DX: Z12.31 Encounter for screening mammogram for malignant neoplasm of breast (principal); M85.80 Other specified disorders of bone density and structure, unspecified site
CPT/HCPCS: 77063; 77067; 77080